=== PATIENT | male | born 1990 | race Caucasian/White ===

== ENCOUNTER 2024-01-16 12:42 | Emergency (ER) | payer BC, SELFPAY ==
[2024-01-16 12:45] VITALS: BP 150/90
[2024-01-16 13:07] VITALS: BMI 37.3
--- NOTE | 2024-01-16 15:28 | ED.GENMED ---
History of Present Illness
General
Chief Complaint: Dizziness
Source: patient
Exam Limitations: none
Time Seen by Provider: 01/16/24 13:30
Nursing documentation reviewed up to this point in time: agreed with
Travel History
Have you had any contact with someone who has COVID-19?: No
Do you have any symptoms of coronavirus? Fever > 100 degrees, chills, cough, shortness of breath, sore throat, loss of taste or smell, muscle aches, or headache?: No
History of Present Illness
History of Present Illness:
Patient states he hit his head on a tree branch while cutting hte grass. No LOC. COmplians of worsening headache, dizziness. Incident occurred on . evaluated by and sent to ED for CT. Patient is awake and alert, in no distress.
Past History
Past History
ED Past Medical History: None
ED Past Surgical History: None
Review of Systems
Review of Systems
Allergies reviewed?: Yes
All Other Systems: ROS reviewed and negative except as documented in HPI and ROS
Constitutional: Reports no symptoms
EENT: Reports no symptoms
Respiratory: Reports no symptoms
Cardiac: Reports no symptoms
ABD/GI: Reports no symptoms
Musculoskeletal: Reports no symptoms
Skin: Reports other (abrasion to forehead)
Neurological: Reports dizzy and headache
Psychiatric: Reports no symptoms
Phy Exam
General Physical Exam
General Presentation: well appearing and no apparent distress
General age: appears stated age
General Skin: warm and dry
General Habitus: normal
General Mental: alert
ENT Exam
ENT Exam: EOMI, TM's normal and neck supple
Eye Exam
Eye Exam: PERRL, EOMI, conjunctiva normal and globe normal
Neurological Exam
Neurological Exam: alert, oriented x3, CN II-XII intact, no motor deficits, no sensory deficits, speech normal and normal gait
More Coma Scale
Eye Opening: Spontaneous
Verbal Response: Oriented
Motor Response: Obeys Commands
GCS Total Score: 15
Mental
Mental Status: oriented to person, oriented to place, oriented to time and usual mental status
Cranial
Cranial Nerves: normal and no facial asymetry
EOM (CN3/4/6): intact
Motor
Seizure Activity: none
Gait: normal
Tremors: none
Other Movement Disorders: none
Right upper extremity: 4
Right lower extremity: 4
Left upper extremity: 4
Left lower extremity: 4
Bilateral upper extremities: 4
Bilateral lower extremities: 4
Sensory
Sensory Exam: intact
Cerebellar
Cerebellar Function: normal finger to nose, normal Romberg test and abnormal finger to nose
Musculoskeletal Exam
Musculoskeletal Exam: full ROM, neuro vasc intact and other (Full nonpainful ROM to head/neck)
Skin Exam
Skin Exam: normal color, warm/dry, no rash and other (Superficial abrasion to forehead. No s/s infection.)
Psychiatric Exam
Psychiatric Exam: normal mood/affect
Course
Orders/Labs/Results
Orders:
Orders
01/16/24 13:36
CT Head W/o Iv Contrast Urgent
Comment:
Reason For Exam: trauma
01/16/24 15:26
Acetaminophen [Tylenol] 1,000 mg PO NOW STA
Vital Signs
Initial and Last Documented VS:
Initial Vital Signs
Temp Pulse Resp BP Pulse Ox
97.9 F 82 20 150/90 98
01/16/24 12:45 01/16/24 12:45 01/16/24 12:45 01/16/24 12:45 01/16/24 12:45
Last Documented Vital Signs
Temp Pulse Resp BP Pulse Ox
97.9 F 82 20 150/90 98
01/16/24 12:45 01/16/24 12:45 01/16/24 12:45 01/16/24 12:45 01/16/24 12:45
*Radiology
Radiology exam reviewed: radiology read reviewed
*Pulse Oximetry
Patient hypoxic: no
*Critical Care Note
Total Time (30-74mins, 75-104mins- exclusive of procedures): Not Applicable
ED Attending Note
-
Portions of this chart may have been created with voice recognition software.� Occasional wrong word or��sound alike� substitutions may have occurred due to the inherent limitations of voice recognition software.
Discharge Plan
Departure
Patient Disposition: Home (Routine Discharge)
Date of Disposition: 01/16/24
Time of Disposition: 15:26
Patient with high blood pressure during this ER visit?: No
Condition: Good
Covid-19: Not Applicable
Discharge Problem:
Head injury
Instructions: Concussion in adults, Head injury in adults
Referrals:
UNKNOWN - PT DOES,NOT KNOW [Family Provider] -
Activity Restrictions/Additional Instructions:
FOllow up with your family doctor in 2-3 days.
Interventions
Interventions:
*Risk Screen - Suicide Last Done: 01/16/24 12:45
*General Assessment Last Done: 01/16/24 12:45
*Neglect/Abuse Screening Last Done: 01/16/24 12:45
ED- Fall Risk Assessment Last Done: 01/16/24 13:09
*ED COVID-19 Vaccine History Last Done: 01/16/24 13:09
ED- Neurological Assessment Last Done: 01/16/24 13:10
Discharge Date and Time
Print Language: NEPALI
[2024-01-16] MEDS: TYLENOL 1000 MG PO (15:36)
[2024-01-16 15:39] VITALS: BP 145/71
== END 2024-01-16 16:09 | disposition home or self-care (01) ==
LOC: EMR 12:42
PROVIDERS: EMERGENCY PHYSICIAN Emergency Medicine
DX: S09.90XA Unspecified injury of head, initial encounter (principal); R42 Dizziness and giddiness; S00.81XA Abrasion of other part of head, initial encounter; R11.0 Nausea; R51.9 Headache, unspecified; W22.09XA Striking against other stationary object, initial encounter; Y93.H2 Activity, gardening and landscaping; Y92.007 Garden or yard of unspecified non-institutional (private) residence as the place of occurrence of the external cause
CPT/HCPCS: 99284; 70450